=== PATIENT | male | born 1985 | race African-American/Black ===

== ENCOUNTER 2025-04-16 23:25 | Emergency (ER) | payer OTHER, MEDICAID ==
[~2025-04-16] VITALS: Ht 180.3 cm; Wt 68.0 kg
[2025-04-17] MEDS ORDERED: ACETAMINOPHEN ES 500 MG TABLET ONE (00:09)
[2025-04-17] MEDS ORDERED: IBUPROFEN 600 MG TABLET ONE (00:09)
[2025-04-17] MEDS ORDERED: IBUP-1490 PO (00:11)
[2025-04-17] MEDS: IBUPROFEN 600 MG TABLET PO ONE (00:11)
[2025-04-17] MEDS: ACETAMINOPHEN ES 500 MG TABLET PO ONE (00:11)
[2025-04-17 01:20] VITALS: BP 122/66; TEMP 98.6; O2SAT 100
== END 2025-04-17 01:21 | disposition home or self-care (01) ==
LOC: ER 23:37
DX: J04.0 Acute laryngitis (principal); B97.89 Other viral agents as the cause of diseases classified elsewhere; Z20.822 Contact with and (suspected) exposure to COVID-19